=== PATIENT | male | born 1980 | race Caucasian/White ===

== ENCOUNTER 2019-10-16 18:33 | Outpatient (CLI) | payer OTHER ==
--- NOTE | 2019-10-16 21:18 | XRAY Report ---
Reason: BACK PAIN LUMBAR Procedure Date: 10/16/2019 Accession Number: [id number] / [id number] Procedure: XR - Lumbar Spine Complete CPT Code: Final Report FULL RESULT: PROCEDURE: Lumbar Spine Complete INDICATIONS: BACK PAIN LUMBAR TECHNIQUE: 4 views of the lumbar spine were acquired. COMPARISON: None. 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 There are 5 nonrib-bearing vertebrae are present. There is normal bony alignment. No vertebral body compression fractures. No suspicious bony lesions. No pars defects. Mild lower lumbar facet arthropathy. Soft tissues: Overlying bowel gas pattern is normal. No suspicious soft tissue calcifications. IMPRESSION: No evidence acute bony abnormality of the lumbar spine. Mild lower lumbar facet arthropathy. Reviewed by: Malcolm Stock MD on 10/16/2019 9:17 PM PDT Approved by: Malcolm Stock MD on 10/16/2019 9:17 PM PDT Station ID: [id number]
== END 2019-10-16 18:34 | disposition home or self-care (01) ==
LOC: DI 18:33
PROVIDERS: ATTEND Family Medicine
DX: M47.816 Spondylosis without myelopathy or radiculopathy, lumbar region (principal)
CPT/HCPCS: 72110

== ENCOUNTER 2020-02-11 12:48 | Outpatient (CLI) | payer OTHER ==
--- NOTE | 2020-02-11 14:42 | MRI Report ---
PROCEDURE: Lumbar Spine W/O INDICATIONS: LUMBAR BACK PAIN TECHNIQUE: Noncontrast sagittal T1 spin echo and T2 fast echo, sagittal STIR, axial T1 and T2 fast spin echo thr ough the lumbar spine. In cases with scoliosis, additional coronal T2 fast spin echo may be performe d. COMPARISON: None. FINDINGS: Image quality: Excellent. Alignment and Curvature: Normal lumbar vertebral body height and alignment. Bone Marrow: No suspicious focal marrow signal abnormality. Mild discogenic marrow edema at the infer ior L4 endplate related to spondylosis. Spinal Cord: Normal position and appearance of the conus. Regional Soft Tissues: Prevertebral and paraspinous soft tissues are within normal limits. Partially visualized retroperitoneal visceral structures demonstrate no significant abnormality. T12-L1: No spinal canal or neural foraminal stenosis. L1-L2: No spinal canal or neural foraminal stenosis. L2-L3: No spinal canal or neural foraminal stenosis. L3-L4: Diffuse disc bulge flattens ventral thecal sac disc material abuts but does not obviously di splace the descending L4 nerve roots within both subarticular zones. Foraminal components of the disc bulge combine with facet hypertrophy to produce mild bilateral neural foraminal stenosis. L4-L5: Diffuse disc bulge and a superimposed broad-based posterior disc protrusion flattening the v entral thecal sac. There is focal extrusion in the left subarticular and paracentral zones which disp laces and likely impinges upon the descending left L5 nerve roots. There is lesser displacement but p ossible impingement of the right L5 nerve roots within the right subarticular zone as well. Foraminal components of the disc bulge contribute to mild bilateral neural foraminal stenosis. L5-S1: No spinal canal or neural foraminal stenosis. IMPRESSION: Lower lumbar spine degenerative changes, worst at L4-L5 where there is suspected impingement of the b ilateral L5 nerve roots (more so on the left). Correlate for any corresponding radicular symptoms. Facet hypertrophy from at L4-L5 and L3-L4. Discogenic marrow edema at the inferior L4 endplate, a potential source of nonradicular axial back pa in. Reviewed by: Antwan Montiel MD on 02/11/2020 2:41 PM PDT Approved by: Antwan Montiel MD on 02/11/2020 2:41 PM PDT Station ID: [id number]
== END 2020-02-11 12:49 | disposition home or self-care (01) ==
LOC: DI 12:48
PROVIDERS: ATTEND Family Medicine
DX: M47.816 Spondylosis without myelopathy or radiculopathy, lumbar region (principal)
CPT/HCPCS: 72148

== ENCOUNTER 2021-06-24 09:26 | Outpatient (CLI) | payer OTHER ==
[2021-06-24 12:02] LABS: BASOPHILS % (AUTO) 0.5 %; EOSINOPHILS # (AUTO) 0.3 10^3/uL (0.0-0.7); EOSINOPHILS % (AUTO) 5.5 %; HCT - HEMATOCRIT 42.3 % (42.0-52.0); HGB - HEMOGLOBIN 14.9 g/dL (14.0-18.0); LYMPHOCYTES # (AUTO) 2.3 10^3/uL (1.5-3.5); LYMPHOCYTES % (AUTO) 41.1 %; MEAN CORPUSCULAR HEMOGLOBIN 29.7 pg (27.0-31.0); MEAN CORPUSCULAR HGB CONC 35.2 g/dL (32.0-36.0); MEAN CORPUSCULAR VOLUME 84.3 fL (80.0-94.0); MONOCYTES # (AUTO) 0.4 10^3/uL (0.0-1.0); MONOCYTES % (AUTO) 7.5 %; NEUTROPHILS # (AUTO) 2.5 10^3/uL (1.5-6.6); NEUTROPHILS % (AUTO) 45.4 %; PLT - PLATELET COUNT 224 10^3/uL (130-450); RED BLOOD COUNT 5.02 10^6/uL (4.70-6.10); RED CELL DISTRIBUTION WIDTH 12.9 % (12.0-15.0); WHITE BLOOD COUNT 5.6 x10^3/uL (4.8-10.8)
[2021-06-24 12:50] LABS: THYROID STIMULATING HORMONE 1.88 uIU/mL (0.34-5.60)
[2021-06-24 12:58] LABS: ALBUMIN 4.3 g/dL (3.2-5.5); ALBUMIN/GLOBULIN RATIO 1.5 (1.0-2.2); ALKALINE PHOSPHATASE 46 IU/L (42-121); ALT ALANINE AMINOTRANSFERASE 32 IU/L (10-60); AST ASPARTATE AMINOTRANSFERASE 27 IU/L (10-42); BUN - BLOOD UREA NITROGEN 16 mg/dL (6-20); CALCIUM 9.8 mg/dL (8.5-10.3); CARBON DIOXIDE - CO2 27 mmol/L (21-32); CHLORIDE 103 mmol/L (101-111); CHOL/HDL RATIO 3.2 (<5.0); CHOLESTEROL 184 mg/dL; GFR - MDRD 82 (>89); GLUCOSE 94 mg/dL (70-100); HDL CHOLESTEROL 57 mg/dL; LDL CHOLESTEROL,CALCULATED 107 mg/dL; LDL/HDL RATIO 1.9 (<3.6); POTASSIUM 4.1 mmol/L (3.5-5.0); SODIUM 137 mmol/L (135-145); TOTAL PROTEIN 7.2 g/dL (6.7-8.2); TRIGLYCERIDES 99 mg/dL; VLDL CHOLESTEROL 20 mg/dL
== END 2021-06-24 09:27 | disposition home or self-care (01) ==
LOC: LAB.N 09:26
PROVIDERS: ATTEND Family Medicine
DX: M54.16 Radiculopathy, lumbar region (principal)
CPT/HCPCS: 36415; 80050; 80061; 83721